=== PATIENT | female | born 1955 | race Caucasian/White ===

== ENCOUNTER 2019-03-12 00:41 | Inpatient (IN) | payer OTHER ==
[2019-03-12] MEDS ORDERED: ALBUTEROL/IPRATROPIUM (NEB) 3 ML AMP HHN (02:30)
[2019-03-12] MEDS ORDERED: DEXTROSE 50% 50 ML SYRINGE IV ×2 (02:30)
[2019-03-12] MEDS ORDERED: ONDANSETRON 4 MG INJ IV (02:30)
[2019-03-12] MEDS ORDERED: NACL 0.9% 3 ML SYG IV (02:30)
[2019-03-12] MEDS ORDERED: GLUCAGON 1 MG INJ IM (02:30)
[2019-03-12] MEDS ORDERED: GLUCOSE GEL 15 GRAM TUBE PO ×2 (02:30)
[2019-03-12] MEDS ORDERED: HYDROCODONE/APAP (5/325) TAB PO (02:30)
[2019-03-12] MEDS ORDERED: GLUCOSE GEL 15 GRAM TUBE BUCCAL (02:30)
[2019-03-12] MEDS: AMITRIPTYLINE 25 MG TAB PO (05:21)
[2019-03-12] MEDS: PIPER-TAZO 3.375 GM IV (PMX) 100 ML IVPB ×3 (05:22→18:27)
[2019-03-12] MEDS: FUROSEMIDE 40 MG TAB PO (05:22)
[2019-03-12] MEDS: HYDROCODONE/APAP (5/325) TAB PO (05:23)
[2019-03-12] MEDS ORDERED: GLIMEPIRIDE 2 MG TAB PO (07:20)
[2019-03-12] MEDS: ACCU-CHEK XX ×4 (08:55→21:00)
[2019-03-12] MEDS: GABAPENTIN 300 MG CAP PO ×2 (08:56→18:26)
[2019-03-12] MEDS: LOSARTAN 25 MG TAB PO (08:57)
[2019-03-12] MEDS: POTASSIUM CHLORIDE (SR) 8 MEQ CAP PO (08:57)
[2019-03-12] MEDS: MELOXICAM 15 MG TAB PO (08:57)
[2019-03-12] MEDS: HEPARIN 5,000 UNIT/1 ML VIAL SC (09:05)
[2019-03-12] MEDS: INSULIN ASPART [NOVOLOG] 3 ML PEN SC ×4 (09:06→20:24)
[2019-03-12] MEDS: ATORVASTATIN 20 MG TAB PO (20:22)
[2019-03-13] MEDS: PIPER-TAZO 3.375 GM IV (PMX) 100 ML IVPB ×4 (00:56→17:41)
[2019-03-13] MEDS: ACCU-CHEK XX ×5 (02:00→21:40)
[2019-03-13] MEDS: FUROSEMIDE 40 MG TAB PO (05:28)
[2019-03-13] MEDS: INSULIN ASPART [NOVOLOG] 3 ML PEN SC ×4 (09:00→21:40)
[2019-03-13] MEDS: POTASSIUM CHLORIDE (SR) 8 MEQ CAP PO (09:04)
[2019-03-13] MEDS: GABAPENTIN 300 MG CAP PO ×2 (09:04→17:39)
[2019-03-13] MEDS: LOSARTAN 25 MG TAB PO (09:04)
[2019-03-13] MEDS: MELOXICAM 15 MG TAB PO (09:04)
[2019-03-13] MEDS: LIDOCAINE 1% (MDV) 20 ML INJ ×5 (11:23→11:24)
[2019-03-13] MEDS: LIDOCAINE 1% (MPF) 5 ML VIAL (11:23)
[2019-03-13] MEDS: AMLODIPINE 5 MG TAB PO (12:32)
[2019-03-13] MEDS: ATORVASTATIN 20 MG TAB PO (21:31)
[2019-03-14] MEDS: PIPER-TAZO 3.375 GM IV (PMX) 100 ML IVPB ×2 (00:27→05:38)
[2019-03-14] MEDS: ACCU-CHEK XX ×5 (02:00→21:07)
[2019-03-14] MEDS: FUROSEMIDE 40 MG TAB PO (05:39)
[2019-03-14] MEDS: MELOXICAM 15 MG TAB PO (08:19)
[2019-03-14] MEDS: POTASSIUM CHLORIDE (SR) 8 MEQ CAP PO (08:19)
[2019-03-14] MEDS: LOSARTAN 25 MG TAB PO ×2 (08:20→21:07)
[2019-03-14] MEDS: AMLODIPINE 5 MG TAB PO (08:20)
[2019-03-14] MEDS: GABAPENTIN 300 MG CAP PO ×2 (08:21→17:59)
[2019-03-14] MEDS: INSULIN ASPART [NOVOLOG] 3 ML PEN SC ×4 (08:21→21:02)
[2019-03-14] MEDS: ENOXAPARIN 40 MG/0.4 ML SYG SC (11:15)
[2019-03-14] MEDS: ATORVASTATIN 20 MG TAB PO (21:03)
[2019-03-14] MEDS: HEPARIN 5,000 UNIT/1 ML VIAL SC (21:05)
[2019-03-15] MEDS: ACCU-CHEK XX ×2 (02:00→08:37)
[2019-03-15] MEDS: FUROSEMIDE 40 MG TAB PO (05:32)
[2019-03-15] MEDS: ACETAMINOPHEN 325 MG TAB PO (05:36)
[2019-03-15] MEDS: POTASSIUM CHLORIDE (SR) 8 MEQ CAP PO (08:38)
[2019-03-15] MEDS: MELOXICAM 15 MG TAB PO (08:38)
[2019-03-15] MEDS: GABAPENTIN 300 MG CAP PO (08:38)
[2019-03-15] MEDS: AMLODIPINE 5 MG TAB PO (08:39)
[2019-03-15] MEDS: LOSARTAN 25 MG TAB PO (08:39)
[2019-03-15] MEDS: INSULIN ASPART [NOVOLOG] 3 ML PEN SC (08:42)
[2019-03-15] MEDS: ENOXAPARIN 40 MG/0.4 ML SYG SC (08:45)
== END 2019-03-15 11:26 | disposition home or self-care (01) | DRG 372 ==
LOC: MS1 00:41
DX: K65.1 Peritoneal abscess (principal); Z68.42 Body mass index [BMI] 45.0-49.9, adult; N39.0 Urinary tract infection, site not specified; D35.02 Benign neoplasm of left adrenal gland; E11.9 Type 2 diabetes mellitus without complications; E78.5 Hyperlipidemia, unspecified; E66.01 Morbid (severe) obesity due to excess calories; I10 Essential (primary) hypertension; K86.89 Other specified diseases of pancreas; K76.0 Fatty (change of) liver, not elsewhere classified; B96.20 Unspecified Escherichia coli [E. coli] as the cause of diseases classified elsewhere
CPT/HCPCS: 74182; 76705; 80048; 80053; 80061; 81001; 82962; 83036; 83735; 84100; 85025; 85049; 85610; 85670; 85730; 87086